=== PATIENT | male | born 1945 | race Caucasian/White ===

== ENCOUNTER → 2017-08-20 10:11 | Outpatient (CLI) | payer MEDICARE, OTHER ==
[2013-10-07 06:22] VITALS: BMI 27.8
[~2017-08-20 10:11] MED LIST: APRISO0.375 GM; ASPIRIN EC81 M1 PO; FISH OIL 1,0001 CA1 PO; HYDROCODONE-APA1 TAB PO; LEVOXYL175 MCG PO; LISINOPRIL-HCTZ1 T11; LISINOPRIL-HCTZ1 T11 PO; MULTI-DAY VITAM1 TAB PO; NEXIUM40 MG PO; POTASSIUM99 M1 PO; PROBIOTIC; ROCALTROL0.5 MCG PO; XALATAN 0.0052.5 ML EACH EYE
== END | disposition home or self-care (01) ==
LOC: D.US 10:11
DX: R22.9 Localized swelling, mass and lump, unspecified (principal)

== ENCOUNTER → 2017-08-27 08:56 | Outpatient (CLI) | payer MEDICARE, OTHER ==
[2013-10-07 06:22] VITALS: BMI 27.8
== END | disposition home or self-care (01) ==
LOC: D.CT 08:56
DX: R22.9 Localized swelling, mass and lump, unspecified (principal)

== ENCOUNTER → 2017-09-12 10:44 | Outpatient (CLI) | payer MEDICARE, OTHER ==
[2013-10-07 06:22] VITALS: BMI 27.8
== END | disposition home or self-care (01) ==
LOC: D.US 10:44
DX: Q61.9 Cystic kidney disease, unspecified (principal)